=== PATIENT | female | born 2000 | race Caucasian/White ===

== ENCOUNTER 2020-08-03 04:41 | Emergency (ER) | payer OTHER, SELFPAY ==
[2020-08-03 04:42] VITALS: BP 118/80; PULSE 127; RESP 18; TEMP 38.3; O2SAT 98; BMI 24.7
--- NOTE | 2020-08-03 04:46 | RAD_ITS ---
STUDY: X-RAY CHEST REASON FOR EXAM: Female, 19 years old. fever and tachypnea TECHNIQUE: Single AP portable view of the chest. COMPARISON: None. FINDINGS: The lungs are clear and expanded. There is no demonstrated pleural abnormality. Normal size heart. Normal mediastinum and yasmin. Normal visualized pulmonary arteries. Normal visualized aortic arch and descending thoracic aorta. Normal visualized thoracic spine. Normal visualized ribs, clavicles, and shoulders. There is no demonstrated abnormality of the visualized soft tissue structures of the upper abdomen. RAD/Chest 1 View (Portable) IMPRESSION: No evidence of acute cardiopulmonary process. Electronically Signed: Chinmay White DO at 5:34 EDT , Service support ,
--- NOTE | 2020-08-03 04:46 | EKG12_ITS ---
Test Reason : PALPATIONS Blood Pressure : / mmHG Vent. Rate : 125 BPM Atrial Rate : 125 BPM P-R Int : 172 ms QRS Dur : 076 ms QT Int : 288 ms P-R-T Axes : 069 087 057 degrees QTc Int : 415 ms Sinus tachycardia Otherwise normal ECG Confirmed by BERNICE HATCH, ZAKI ([id number]), production editor DCIK SHANNON ([id number]) on 08/07/2020 2:10:45 PM Referred By: GUILLERMO Confirmed By:ZAKI QUEEN MD
--- NOTE | 2020-08-03 04:47 | ED.VIS.GEN ---
History of Present Illness Chief Complaint: Palpitations Detail of Chief Complaint: Palpitations and myalgias and arthralgias with fever Informant: Patient, [employer] Onset: Yesterday - 2299 Context: Sudden Onset Timing: Continuous Quality: Rapid heartbeat Location: Cardiovascular Current Severity: Moderate Maximum Severity: Moderate Worsened by: Possibly Covid vaccine Relieved by: Nothing Associated Symptoms: Mild shortness of breath with fever Narrative: Patient is a 19-year-old female who presents via ambulance because of fever, myalgias, arthralgias with shortness of breath. Patient received the Covid vaccine yesterday. Her symptoms started at 2300. She received the [employer] Covid vaccine. She denies headache. She does have history of migraines. Denies double vision, blurred vision loss of vision. Denies rhinorrhea postnasal drainage. She does report congestion. Congestion has been going on for some time. She denies allergies. She denies sore throat. She denies cough. She is a former smoker. She is on control pills. She denies history of VTE. Denies leg pain, swelling discoloration. She denies nausea, vomiting diarrhea. She denies dysuria, frequency, urgency or hematuria. She reports no ill contacts. She denies loss of taste or smell. Prior similar symptoms: No Recent Illness/Hospitalization: No - Past Medical History (1) History of migraine headaches Status: Acute Past Medical History - Allergies and Home Meds Allergies/Adverse Reactions: Allergies No Known Allergies Allergy (Verified 08/03/20 04:46) Primary Care Physician: NOT,DEFINED [NON-STAFF] - Prior records reviewed: No Past Medical History: - - Migraine headaches and postural hypotension Surgical History: no surgical history Lives: With Family Smoking Status: Former smoker Alcohol: None Drugs: None Review of Systems General: Reports: Chills, Fever, Sweats. Denies: Malaise, Subjective, Weight loss Eyes: Reports: - - She denies photophobia.. Denies: Visual changes - bilaterally, Blurred Vision - bilaterally ENT: Denies: Bilateral ear pain, Rhinorrhea, Sore throat Cardiovascular: Reports: Palpitations, Heart racing. Denies: Chest pain Respiratory: Reports: Dyspnea. Denies: Cough, Sputum, Dyspnea on exertion, Orthopnea, Paroxysmal nocturnal dyspnea Gastrointestinal: Denies: Abdominal pain, Nausea, Vomiting, Diarrhea, Melena, Hematochezia Genitourinary: Denies: Dysuria, Hematuria, Frequency Musculoskeletal: Reports: Myalgias, Arthralgias. Denies: Swelling, Extremity Pain Skin: Denies: Rash, Wounds Neurological: Denies: Weakness, Parasthesia, Numbness Endocrine: Denies: Polyuria, Polydipsia Hematologic: Denies: Easy bruising, Easy bleeding Allergy: Denies: Uticaria - She reports she has history of hives., Swelling of the mouth, Swelling of the tongue Physical Exam Vital Signs/Narrative: Vital Signs Temp Pulse Resp BP Pulse Ox 08/03/20 04:42 100.9 F H 127 H 18 118/80 98 Inital Vital Signs reviewed: Yes General: Well nourished, Well developed, No Acute Distress. Negative for: Obese Head: Normocephalic, Atraumatic Eyes: Perrl, EOMI. Negative for: Pale conjunctiva, Scleral icterus ENT: Moist mucous membranes, No rhinorrhea - And has pale grayish appearing nasal mucosa consistent with allergic rhinitis Neck: Supple, Nontender, No lymphadenopathy, No JVD Cardiovascular: Regular rhythm, No murmurs, Normal S1, Normal S2, Tachycardia Respiratory: No distress, CTA bilaterally, Chest nontender Abdomen: Soft, Nontender, Nondistended, Normal bowel sounds Rectal: Deferred Back: Nontender, Normal Inspection. Negative for: CVA tenderness Extremities: Nontender, No edema Skin: No rash, No Trauma, Pallor, - - Patient has areas of excoriation upper back bilaterally. Negative for: Normal color, Cyanosis, Diaphoresis, Jaundice Neurological: Alert, Oriented x3, Cranial nerves II-XII grossly intact, Normal Strength, Normal Sensation Psychological: Normal affect Diagnostic/Tx/Re-eval Chest X-Ray - ED: 1 View, Read by ED Physician, Normal, Heart, Lungs, Mediastinum, Bony Structures, No Acute Disease, - - There is no evidence of effusion or pneumothorax. X-ray was interpreted by me at 0518. 08/03/20 04:46 Chest 1 View (Portable) [RAD] Stat Laboratory Results 08/03/20 05:00 WBC 6.8 RBC 3.96 L Hgb 12.3 Hct 36.2 L MCV 91.4 MCH 31.1 MCHC 34.0 RDW Std Deviation 37.8 RDW Coeff of Fifi 11.2 L Plt Count 215 MPV 9.3 Immature Gran % (Auto) 0.600 Neut % (Auto) 87.8 H Lymph % (Auto) 6.5 L Cameron % (Auto) 4.3 Eos % (Auto) 0.4 Baso % (Auto) 0.4 Absolute Neuts (auto) 5.9 Absolute Lymphs (auto) 0.44 L Nucleated RBC % 0 - EKG Initial EKG Interpretation: Sinus Tachycardia - Tachycardia with a ventricular rate of 125. HI interval 172 ms. QS duration 76 ms. QT duration 288 ms. [place] is normal. Other than the sinus tachycardia of the EKG is normal - Medical Decision Making Differential diagnosis includes adverse reaction to the Covid vaccine. This may represent viral infection. Since patient is tachycardic to 135?140 will obtain EKG. Since she has history of postural symptoms with near syncope will obtain BMP to assess electrolytes and renal function, CBC to assess H&H and she will receive a liter of saline. She also will receive antipyretic for her temperature of 100.9. Because she is tachypneic with fever chest x-ray was obtained to determine if there is evidence of pneumonia or is she tachypneic because of fever. She is not hypoxic. Patient was reassessed at 0620. She looks much improved. She states she feels better. Heart rate is now 101. Suspect all of her symptoms are due to the Covid vaccine. ED Disposition - Plan for ED Patient: Disposition: Home or Assisted Living Diagnosis: Adverse reaction to COVID-19 vaccine, Sinus tachycardia by electrocardiogram, Drug induced fever, Tachypnea on examination Instructions: ED Drug Reaction, Other Referrals: NOT,DEFINED [NON-STAFF] - Additional Instructions: 1. Take 2 Tylenol every 4-6 hours for aches and fever. 2. Drink plenty of fluids over the next 24 hours 3. Follow-up with your doctor as needed.
--- NOTE | 2020-08-03 04:49 | ED.RN ---
NO OLD EKGS IN MUSE
[2020-08-03] MEDS: Ketorolac 15 MG/ML Vial IV (04:58)
[2020-08-03] MEDS: 0.9% Normal Saline 1,000 ML 1000 ML IV (04:58)
[2020-08-03 05:06] LABS: Absolute Lymphocyte Count 0.44 X10^3/uL (0.83-4.51); Absolute Neutrophil Count 5.9 X10^3/uL (2.0-7.7); Basophil# 0.03 X10^3/uL; Basophil% 0.4 % (0-1); Eosinophil# 0.03 X10^3/uL; Eosinophils% 0.4 % (0-5); Hematocrit 36.2 % (37-47); Hemoglobin 12.3 g/dL (12.0-15.0); Lymphocyte # 0.44 X10^3/ul (4.0); Lymphocyte % 6.5 % (19-41); Mean Corpuscular Hgb 31.1 pg (27.0-32.0); Mean Corpuscular Volume 91.4 fL (81-99); Mean Platelet Vol. 9.3 fl (6.2-12.0); Monocyte# 0.29 X10^3/uL; Monocyte% 4.3 % (0-10); NRBC Flagged by Analyzer 0 % (0-5); Neutrophil # 5.92 X10^3/uL (2.7-7.7); Neutrophil % 87.8 % (47-70); POSITIVE DIFFERENTIAL YES; Platelet Count 215 K/mm3 (150-450); RBC Distribution Width CV 11.2 % (11.6-14.6); RBC Distribution Width SD 37.8 fl (35.1-43.9); Red Blood Count 3.96 M/mm3 (4.2-5.4); White Blood Count 6.8 K/mm3 (4.4-11.0)
[2020-08-03 05:09] LABS: Differential Indicated SCAN CRITERIA MET
[2020-08-03 05:17] VITALS: BP 106/60; PULSE 101; RESP 24; O2SAT 100
[2020-08-03 06:47] VITALS: BP 105/57; PULSE 106; RESP 22; O2SAT 97
== END 2020-08-03 06:49 | disposition home or self-care (01) ==
PROVIDERS: Emergency Provider Emergency Medicine
DX: R50.2 Drug induced fever (principal); T50.B95A Adverse effect of other viral vaccines, initial encounter; R06.82 Tachypnea, not elsewhere classified; Y92.9 Unspecified place or not applicable; Z87.891 Personal history of nicotine dependence; Z79.3 Long term (current) use of hormonal contraceptives
CPT/HCPCS: 71045; 85025; 93005; 96361; 96374; 99285; J7030; A4216